=== PATIENT | male | born 1990 | race African-American/Black ===

== ENCOUNTER 2018-12-21 15:30 | Emergency (ER) | payer OTHER ==
[~2018-12-21] VITALS: Ht 180.3 cm; Wt 77.3 kg
[2018-12-21 15:31] VITALS: BP 136/70
[2018-12-21] MEDS ORDERED: PEPT262T2 PO (15:37)
--- NOTE | 2018-12-21 16:19 | REP ---
Supine abdomen single AP view: There are no comparisons. The bowel gas pattern is normal. There are no calcifications. The skeletal soft tissue structures otherwise are unremarkable. Impression: Normal bowel gas pattern. Electronically Signed by Segun Boo MD 12/21/2018 04:10 P
[2018-12-21] MEDS ORDERED: MAGNESIUM CITRATE 300 ML BTL PO ONE (16:45)
== END 2018-12-21 17:05 | disposition home or self-care (01) ==
LOC: M ED 15:30
DX: K59.00 Constipation, unspecified (principal)